=== PATIENT | female | born 1975 | race Two or more races ===

== ENCOUNTER 2018-01-03 23:22 | Emergency (ER) | payer SELFPAY ==
[2018-01-03] MEDS: IV NORMAL SALINE 1000ML BAG 1,000 ML IV (23:47)
[2018-01-04 00:23] LABS: ADD MAN DIFF? NO
[2018-01-04 00:26] LABS: URINE HCG POC HCG NEGATIVE (Negative)
[2018-01-04 00:28] LABS: BASO % 1 % (0-3); EOS # 0.2 x10^3/uL (0.0-0.7); EOS % 3 % (0-3); HEMATOCRIT 39.7 % (36.0-47.0); HEMOGLOBIN 13.8 g/dL (12.0-15.5); LYMPH % 42 % (24-48); MEAN CORPUSCULAR HEMOGLOBIN 30 pg (25-35); MEAN CORPUSCULAR HGB CONC 35 g/dL (31-37); MEAN CORPUSCULAR VOLUME 87 fL (79-100); MONO # 0.5 x10^3/uL (0.0-1.1); MONO % 7 % (0-9); NEUT # 3.4 x10^3uL (1.8-7.7); NEUT % 48 % (31-73); PLATELET COUNT 300 x10^3/uL (140-400); RED BLOOD COUNT 4.59 x10^6/uL (3.50-5.40); WHITE BLOOD COUNT 7.2 x10^3/uL (4.0-11.0)
[2018-01-04 00:29] LABS: BILIRUBIN,URINE NEGATIVE (NEG); CLARITY,URINE CLEAR; COLOR,URINE YELLOW; GLUCOSE,URINE NEGATIVE (NEG); NITRITE,URINE NEGATIVE (NEG); PROTEIN,URINE NEGATIVE (NEG-TRACE); UROBILINOGEN,URINE 0.2 mg/dL (0.2 mg/dL)
[2018-01-04 00:34] LABS: BARBITURATES NEG (NEG); BENZODIAZEPINES NEG (NEG); CANNABINOIDS NEG (NEG); COCAINE NEG (NEG); METHADONE NEG (NEG); OPIATES NEG (NEG); PHENCYCLIDINE NEG (NEG)
[2018-01-04 00:35] LABS: ANION GAP 12 (6-14); BACTERIA,URINE 0 /HPF (0-FEW); BLOOD UREA NITROGEN 8 mg/dL (7-20); BUN/CREATININE RATIO 10 (6-20); CALCIUM 8.6 mg/dL (8.5-10.1); CARBON DIOXIDE 25 mmol/L (21-32); CHLORIDE 103 mmol/L (98-107); CREATININE 0.8 mg/dL (0.6-1.0); GFR 78.7; GLUCOSE 100 mg/dL (70-99); POTASSIUM 3.7 mmol/L (3.5-5.1); RBC,URINE 0 /HPF (0-2); SODIUM 140 mmol/L (136-145); SQUAMOUS EPITHELIAL CELL,UR FEW /LPF; WBC,URINE 0 /HPF (0-4)
[2018-01-04 00:38] LABS: AMPHETAMINE/METHAMPHETAMINE NEG (NEG); ETHANOL, URINE NEG (NEG)
[2018-01-04 00:41] LABS: ALK PHOS 82 U/L (46-116); ALT (SGPT) 46 U/L (14-59); AST (SGOT) 28 U/L (15-37); TOTAL BILIRUBIN 0.4 mg/dL (0.2-1.0)
[2018-01-04 00:44] LABS: TROPONINI < 0.017 ng/mL (0.000-0.055)
[2018-01-04 00:50] LABS: THYROID STIM HORMONE (TSH) 8.637 uIU/mL (0.358-3.74)
[2018-01-04] MEDS: ALPRAZolam 0.5 MG TABLET PO (01:17)
[2018-01-04 02:06] LABS: FREE T4 0.95 ng/dL (0.76-1.46)
== END 2018-01-04 02:12 | disposition home or self-care (01) ==
LOC: ER 23:22
DX: R00.2 Palpitations (principal); F41.9 Anxiety disorder, unspecified; R94.6 Abnormal results of thyroid function studies; I10 Essential (primary) hypertension; E11.9 Type 2 diabetes mellitus without complications
CPT/HCPCS: 36415; 71045; 80053; 80307; 81001; 81025; 84439; 84443; 84484; 85025; 93005; 99285-25; J7030